=== PATIENT | female | born 1975 | race Hispanic/Latino ===

== ENCOUNTER 2022-03-01 20:01 | Emergency (ER) | payer OTHER ==
[~2022-03-01] VITALS: Ht 175.3 cm; Wt 228.6 kg
[2022-03-01 20:39] LABS: BASOPHILS % (AUTO) 0.5 % (0.0-5.0); HEMATOCRIT 41.8 % (36-48); LYMPHOCYTES % (AUTO) 24.4 % (21.0-51.0); MEAN CORPUSCULAR HEMOGLOBIN 28.5 pg (27.0-33.0); MEAN CORPUSCULAR HGB CONC 31.3 g/dL (32.0-36.0); MEAN CORPUSCULAR VOLUME 91.1 fL (79-99); MONOCYTES % (AUTO) 10.1 % (3.0-13.0); NEUTROPHILS % (AUTO) 62.6 % (40.0-77.0); PLATELET COUNT (AUTO) 317 K/uL (130-400); RED BLOOD CELL COUNT(AUTO) 4.59 MIL/uL (4.00-5.50); RED CELL DISTRIBUTION WIDTH 12.2 % (11.0-15.5)
[2022-03-01 20:45] LABS: APPEARANCE,URINE Cloudy (CLEAR); BILIRUBIN,URINE Negative (NEGATIVE); COLOR,URINE Dark Yellow (YELLOW); GLUCOSE, URINE (UA) Negative (NEGATIVE); KETONES,URINE Trace mg/dL (NEGATIVE); LEUKOCYTE ESTERASE ,URINE Small (NEGATIVE); NITRATE,URINE Negative (NEGATIVE); OCCULT BLOOD,URINE Negative (NEGATIVE); PH,URINE 5.5 (5.0-8.0); PROTEIN,URINE POS 1+ mg/dL (NEGATIVE)
[2022-03-01] MEDS ORDERED: MORPHINE 4 MG SYG ONE (20:51)
[2022-03-01] MEDS ORDERED: ONDANSETRON 4MG INJ ONE (20:51)
[2022-03-01] MEDS ORDERED: 0.9%NACL 1000ML 1,000 ML IV ONE ×2 (20:52→21:00)
[2022-03-01 20:59] LABS: BACTERIA,URINE Few /HPF (None Seen); MUCUS,URINE Few LPF (None Seen); SQUAMOUS EPITHELIAL CELL,UR Moderate /HPF (0-2)
[2022-03-01] MEDS ORDERED: ONDANSETRON 4MG INJ IVP ONE (21:00)
[2022-03-01] MEDS ORDERED: MORPHINE 4 MG SYG IVP ONE (21:00)
[2022-03-01 21:01] LABS: POTASSIUM 3.7 mmol/L (3.5-5.1)
[2022-03-01 21:06] LABS: ALBUMIN 3.1 g/dL (3.5-5.0); BILIRUBIN,TOTAL 0.5 mg/dL (0.2-1.0); TOTAL PROTEIN, SERUM 8.7 g/dL (6.0-8.3)
[2022-03-01] MEDS ORDERED: IOHEXOL-350 75 ML VIAL IV ONE (21:06)
[2022-03-01] MEDS ORDERED: CEPH500B PO (23:28)
[2022-03-01] MEDS ORDERED: NAPR500T6 PO (23:28)
[2022-03-01 23:37] VITALS: BP 152/57
== END 2022-03-01 23:46 | disposition home or self-care (01) ==
LOC: EDH 20:01
DX: N39.0 Urinary tract infection, site not specified (principal); J45.909 Unspecified asthma, uncomplicated; I10 Essential (primary) hypertension; E03.9 Hypothyroidism, unspecified; E78.00 Pure hypercholesterolemia, unspecified; Z79.1 Long term (current) use of non-steroidal anti-inflammatories (NSAID)
CPT/HCPCS: 36415; 74177; 80053; 81001; 83690; 85025; 96361; 96374; 96375; 99285; J2270; J2405; J7030; Q9967